=== PATIENT | female | born 1960 | race Caucasian/White ===

== ENCOUNTER 2018-03-05 06:28 | Day surgery (SDC) | payer BC ==
[~2018-03-05 06:28] MED LIST: Lactated Ringers 1,000 ML IV SCH
[2018-03-05] MEDS ORDERED: Sodium Chloride 0.9% 1,000 ML IV SCH (06:30)
[2018-03-05] MEDS ORDERED: fentaNYL 100 MCG/2 ML SDV ONE (07:17)
[2018-03-05] MEDS ORDERED: Propofol 200 MG/20 ML SDV ONE (07:17)
[2018-03-05] MEDS ORDERED: Midazolam 1 MG/ML 2 ML SDV ONE (07:17)
--- NOTE | 2018-03-14 10:23 | OR ---
DATE OF PROCEDURE: 03/05/2018 PROCEDURE: EGD. FINDINGS: 1. Gastric polyps. 2. Other gross abnormalities. COMPLICATIONS: None. 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 ANESTHETIC: MAC. PREOPERATIVE DIAGNOSIS: Abdominal pain. POSTOPERATIVE DIAGNOSIS: Abdominal pain. RISKS: Risks, benefits, alternatives, and limitations including, but not limited to infection, bleeding, and perforation were explained to the patient, who wished to proceed. PROCEDURE IN DETAIL: The patient was placed in left lateral decubitus position. EGD scope was introduced and advanced atraumatically to the second part of the duodenum. The scope was brought back and retroflexed. There was no hiatal hernia. The patient has some gastric polyps, which were biopsied without difficulty. The GE junction was normal. No other abnormalities noted. The patient tolerated the procedure well. Radhames Banerjee MD /[id number]
== END 2018-03-05 09:15 | disposition home or self-care (01) ==
LOC: JP.SDS 06:28
PROVIDERS: ATTEND Surgery
DX: R10.9 Unspecified abdominal pain (principal); K31.7 Polyp of stomach and duodenum; I10 Essential (primary) hypertension; K21.9 Gastro-esophageal reflux disease without esophagitis; Z88.1 Allergy status to other antibiotic agents; Z88.8 Allergy status to other drugs, medicaments and biological substances
CPT/HCPCS: 43239; 88305; J2250; J2704; J3010; J7030